=== PATIENT | female | born 1940 | race Native Hawaiian/Other Pacific Islander ===

== ENCOUNTER 2016-09-22 06:24 | Day surgery (SDC) | payer MEDICARE ==
[2016-09-21 07:38] VITALS: BMI 32.9
[2016-09-22] MEDS ORDERED: Lidocaine 2% Inj (20ml) ONE (07:59)
[2016-09-22] MEDS ORDERED: Lidocaine 1% Inj (20ml) ONE ×2 (08:02→08:05)
[2016-09-22] MEDS ORDERED: Lidocaine 2% w Epi 1:100,000 Inj IJ ONE (08:41)
--- NOTE | 2016-09-22 09:12 | PCM.SURG1 ---
Surgeon's Initial Post Op Note - Surgeon's Notes Surgeon: Justino Jackson MD Associate Professor Of Counseling: Esperanza Muniz PGY-1 Type of Anesthesia: Local Pre-Operative Diagnosis: Left neck supraclavicular sebaceous cyst Operative Findings: See op report Post-Operative Diagnosis: Left neck supraclavicular sebaceous cyst Operation Performed: Excision of left neck superclavicular sebaceous cyst Specimen/Specimens Removed: Sebaceous cyst Estimated Blood Loss: EBL {In ML}: 5 Blood Products Given: N/A Drains Used: No Drains Post-Op Condition: Good Date of Surgery/Procedure: 09/22/16 Time of Surgery/Procedure: 09:11
[2016-09-22 09:47] VITALS: BP 165/73; PULSE 78; RESP 16; TEMP 97.7; O2SAT 97
--- NOTE | 2016-09-22 18:07 | OP ---
PROCEDURE DATE: 09/22/2016 PREOPERATIVE DIAGNOSIS: Exposed sebaceous cyst of the neck. SURGEON/ANESTHESIOLOGIST: Justino Jackson Jr., MD ADMINISTRATIVE AIDE: Dr. Muniz, Resident ANESTHESIA: 1% Xylocaine with epinephrine. INDICATION: A 76-year-old woman with an exposed sebaceous cyst of the neck. OPERATIVE FINDINGS: Cyst was completely removed by wide and deep excision. Wound was approximated with subcuticular closure and Steri-Strips. Blood loss procedure is 5 mL. Operation carried out, excision of 2 cm sebaceous cyst of the neck. Justino Jackson Jr., MD
== END 2016-09-22 09:21 | disposition home or self-care (01) ==
LOC: C.SDS 06:24
PROVIDERS: ATTEND Surgery Vascular Surgery
DX: L72.3 Sebaceous cyst (principal); L72.0 Epidermal cyst